=== PATIENT | female | born 1965 | race Asian ===

== ENCOUNTER → 2017-08-02 | Outpatient (CLI) | payer OTHER ==
--- NOTE | 2017-08-02 14:58 | RADRPT ---
PROCEDURE: US Abdomen and Retroperitoneum. CLINICAL INDICATION: Abdominal pain. Weight loss. TECHNIQUE: Multiple real-time longitudinal and transverse images were acquired of the patient's ab domen and retroperitoneum utilizing a curved array transducer. COMPARISON: No prior studies are available for comparison. FINDINGS: The liver is normal in size and normal in echogenicity. The liver has a normal smooth surface. Ther e is no focal hepatic lesion. Color Doppler and pulsed Doppler sonography demonstrate normal antegra de flow in the portal vein. The gallbladder is normal with no stones or wall thickening. The bile ducts are normal with the common bile duct measuring 3.4 mm in diameter. The spleen is normal in size. There is no focal splenic lesion. The pancreas is partially seen and is unremarkable. There is no free fluid. The right kidney measures 10.2 cm and the left kidney measures 11.4 cm. There is no renal mass. There is no hydronephrosis or calculus. The abdominal aorta is not dilated. The inferior vena cava is unremarkable. IMPRESSION: 1. Unremarkable abdomen and retroperitoneum ultrasound. RPTAT: QQ .Terrance Moore MD, MD Date Time Electronically viewed and signed by .Terrance Moore MD, on 08/02/2017 14:58 .R/
--- NOTE | 2017-08-02 15:00 | RADRPT ---
PROCEDURE: US Pelvis. CLINICAL INDICATION: Pelvic pain. Weight loss. TECHNIQUE: The pelvis was evaluated with transabdominal and transvaginal sonography in the axial a nd sagittal planes. COMPARISON: No prior study is available for comparison. FINDINGS: Uterus: 9.9 x 6.6 x 7.0 cm. Endometrium: 8.6 mm. Right ovary: 2.2 x 1.3 x 1.4 cm. Left ovary: Not visualized. Uterine masses: None. Ovarian masses: None. Color Doppler and pulsed Doppler sonography demonstrate normal flow to the ova you. Other pelvic masses: None. Free fluid: None. IMPRESSION: 1. Left ovary not visualized. 2. Otherwise unremarkable pelvic ultrasound. RPTAT: QQ .Terrance Moore MD, MD Date Time Electronically viewed and signed by .Terrance Moore MD, on 08/02/2017 15:00 .R/
== END | disposition home or self-care (01) ==
LOC: U/S 08:24
PROVIDERS: ATTEND Internal Medicine Hematology & Oncology
DX: R63.4 Abnormal weight loss (principal)
CPT/HCPCS: 76700; 76830; 76856